=== PATIENT | female | born 1940 | race Caucasian/White ===

== ENCOUNTER → 2024-02-21 08:42 | Outpatient (REF) | payer MEDICARE, BC, SELFPAY ==
--- NOTE | 2024-02-11 14:27 | PN.DIAED02 ---
Referral
DSME Class Series Code: [id number]
Referred For: Diabetes Self-Management Training, Medical Nutrition Therapy, Self-Blood Glucose Monitoring, Long-Term Complication Instruction, Accute Complication Instruction, Continuous Glucose Monitoring, Medication management, Care Coordination,
Disease Management
PHI Release Authorization Form Signed: Yes
Patient Problems:
Current Active Problems
Problem Status Onset
Type 2 diabetes mellitus without complications
Demographic
(1) Type 2 diabetes mellitus without complications
Status: Acute
Qualifiers:
Diabetes mellitus termite control representative insulin use: with termite control representative use Qualified Code(s): E11.9 - Type 2 diabetes mellitus without complications; Z79.4 - intermediate (current) use of insulin
Code(s): E11.9 - Type 2 diabetes mellitus without complications
Patient's primary language-: Colombian
Education: College degree
Occupation: Retired
- Social
Living Arrangements: Self & spouse
- Learning Methods
Preferred Method: Reading, Hands-on demonstration, Video
Barriers to Learning: Vision (recent vision surgery--lens replacement)
Glycemic Control
- Blood Glucose Monitoring Assessment
Date: 12/21/23 (less than 200 mg/dL)
Blood glucose monitoring at home: Yes (freestyle solis 3)
Monitor Brands: Other (educated)
- Ketone Monitoring Assessment
Patient monitoring ketone: No
- Hyperglycemia Assessment
Experiences Hyperglycemia: No
- Hypoglycemia Assessment
Patient carries glucose source: Yes
Patient experiences hypoglycemia: Yes
Frequency: 1-3x per week ([facility] Barb contact Dr. Colón to discuss possible dose adjustments if hyp events increase)
Treatment: glucose tabs
Patient has required treatment by others: No
History of Hypoglycemia Unawareness: No
- Hemoglobin A1c
Date: 01/02/24
A1C Percentage (%): 10
Medical History of Diabetes
Family Diabetes History: Mother, Sibling
Previous Diabetes Education: No
Previous visit with Dietitian: No
Complications/Comorbidity/Specialist: Cataracts (lens exchange 01/31), Heart Disease (afib, Eloquis 2.5 mg BID), Hypertension (metropolo 25 mg BID & lasix 10 mg daily), Hyperlipidemia, Other / symptoms (metastatic melanoma )
Current Home Medication
- Insulin Management
Patient adjusts own insulin dosages: No
Patient has access to glucagon: No (glucose tablets, discussed reaching out to Dr. Colón for prescription )
- Insulin Types
Novolog Tresiba
Insulin Injection Site: Rotates
Measures
- Anthropometrics
Height: 5 ft
Actual Weight: 133 lb 9.6 oz
- Blood Pressure / Pulse
Blood pressure: 152/88 (seeing senior product manager today for routine EKG)
Pulse: 75
- Diabetes Management
Medical Management for Diabetes: Complete physical exam (01/01), Dental exam (01/01), Dilated eye exam (01/31--recent surgery (lens replacement)), Foot exam (12/01)
Self-Care
- Tobacco Usage
Do you now, or have you ever smoked?: Never smoked
- Alcohol & Drugs Usage
Drinks Alcohol: No
- Meals & Dining
Meals & Dining: Patient skips meals: No, Food Intolerance / Allergy: No, Cultural / Taoist Dietary Needs: No
Primary Table Worker Packager: Self
Dining Out Frequency: 1-3x per week
- Physical Activity
Physical Limitation: No
Patient participates in physical Activity: Yes
Duration: 31-40 minutes
Frequency: 3-5x per week
Intensity: Moderate
- Self Foot-Care
Foot Problems: None
- Diabetes Identification
Carries Diabetes Identification: No
Diabetes Identification Information Provided: Yes (provided handout)
Care Plan
- Plan of Care
Plan of Care:
Barb presented for her initial diabetes assessment for the February 2024 daytime DSME course. She was diagnosed last year with diabetes and started on insulin following immunotherapy for metastatic melanoma. She has not received diabetes education
previously. She currently is wearing a freestyle solis 3 sensor and her most recent A1c from 01/01 is 10%. She reports mostly high blood sugars with a few lows noted 1 to 3 times per week. I reviewed checking a blood sugar with a contour next meter
as she does not have a meter at home only the senosr. We reviewed hypoglycemia recognition and treatment. I encouraged medical identification. She recently had eye surgery and stated she was 'overwhelmed' doing all the paperwork; depression
assessment and pre-quiz. I offered to help her review the questions but she wanted to take it home and bring it back with her to the first class. She was seeing the senior product manager this afternoon for an EKG and I recommended she have her blood pressure
taken as it was elevated. She stated she has been taking her Metropol as prescribed. I recommended she reach out to Dr. Colón if she has specific concerns with her blood glucose readings. Her next appt with endocrine is 04/04.
--- NOTE | 2024-02-11 14:57 | PN.DIAED04 ---
Education Record
- Education Record
Class Attended: Other (Initial DSME assessment)
DSME Class Series Code: [id number]
Instructor: Nurse Practitioner (BRANDON Kumar)
Goals
- Goal 1
Being Active: Exercise more often, Other (increase to daily exercise for 30 minutes)
Goals To Be Evaluated: Exercise more often. Other
- Goal 2
Healthy Eating: Make better food choices
Goals To Be Evaluated: Make better food choices
- Goal 3
Monitoring: Other (monitor glucose sensor before driving and before/after exercise)
Goals To Be Evaluated: Other
--- NOTE | 2024-02-22 13:35 | PN.DIAED14 ---
This is to notify you that your patient with diabetes, ILANA BRIGHT ( 1940), has enrolled in our diabetes self-management classes that are being held at [facility].
These classes will include an introduction to diabetes, diet, medication, exercise and prevention of complications. At the end of our class series, you will receive a report of your patient's participation and progress for your records.
Please contact me at the Diabetes Center, , if there is any particular information regarding your patient that might be helpful to me.
Sincerely,
Rinku T[facility]SIDNEY,[facility]
--- NOTE | 2024-02-22 13:35 | PN.DIAED04 ---
Addendum entered and electronically signed by Nydia Dhillon 02/23/24 11:50:
Outpatient Diabetes Education Program:
Class 1 (120 minutes)
Describe the diabetes disease process and treatment options
Diabetes management
Develop personal strategies to promote health and behavior change
Integrate psychosocial adjustment for daily living
Monitor blood glucose and other parameters. Interpret and use the results for self-management decision making
Prevent, detect, and treat acute complications
Original Note:
Education Record
- Education Record
Class Attended: Class 1
DSME Class Series Code: [id number]
Instructor: Nurse Practitioner (BRANDON Kumar)
Class Length (mins): 120
Post-Class 1 Test Score (%): 94
== END ==
LOC: DES 08:42
PROVIDERS: ATTENDING PHYSICIAN Internal Medicine Endocrinology, Diabetes & Metabolism
DX: E11.9 Type 2 diabetes mellitus without complications (principal)
CPT/HCPCS: 99078

== ENCOUNTER → 2024-03-06 09:06 | Outpatient (REF) | payer MEDICARE, BC, SELFPAY | LOC: DES 09:06 | PROVIDERS: ATTENDING PHYSICIAN Internal Medicine Endocrinology, Diabetes & Metabolism | DX: E11.9 Type 2 diabetes mellitus without complications (principal) | CPT/HCPCS: 99078 ==

== ENCOUNTER → 2024-03-13 10:00 | Outpatient (REF) | payer MEDICARE, BC, SELFPAY ==
--- NOTE | 2024-03-14 10:29 | PN.DIAED04 ---
Education Record
- Education Record
Class Attended: Class 4
DSME Class Series Code: [id number]
Instructor: Nurse Practitioner (BRANDON Kumar)
Class Curriculum:
Outpatient Diabetes Education Program:
Class 4 (120 minutes)
Develop personal strategies to promote health and behavior change
Incorporate physical activity into lifestyle
Utilize medications safety for maximum therapeutic effectiveness
Understand different medication/insulin mechanism of action
Preparing for travel
Class Length (mins): 120
Post-Class 4 Test Score (%): 87
== END ==
LOC: DES 10:00
PROVIDERS: ATTENDING PHYSICIAN Internal Medicine Endocrinology, Diabetes & Metabolism
DX: E11.9 Type 2 diabetes mellitus without complications (principal)
CPT/HCPCS: 99078

== ENCOUNTER → 2024-03-20 10:55 | Outpatient (REF) | payer MEDICARE, BC, SELFPAY | LOC: DES 10:55 | PROVIDERS: ATTENDING PHYSICIAN Internal Medicine Endocrinology, Diabetes & Metabolism | DX: E11.9 Type 2 diabetes mellitus without complications (principal) | CPT/HCPCS: 99078 ==

== ENCOUNTER → 2024-04-10 09:59 | Outpatient (REF) | payer MEDICARE, BC, SELFPAY ==
--- NOTE | 2024-04-11 10:02 | PN.DIAED04 ---
Education Record
- Education Record
Class Attended: Class 2
DSME Class Series Code: [id number]
Instructor: Registered Dietitian (Michelle Merida, RD, LDN, CDE)
Class Curriculum:
Outpatient Diabetes Education Program:
Class 2 (120 minutes)
Incorporate nutritional management into lifestyle
Understanding nutritional value
Understanding carbohydrate counting
Class Length (mins): 120
== END ==
LOC: DES 09:59
PROVIDERS: ATTENDING PHYSICIAN Internal Medicine Endocrinology, Diabetes & Metabolism
DX: E11.9 Type 2 diabetes mellitus without complications (principal)
CPT/HCPCS: 99078